=== PATIENT | female | born 1975 | race Caucasian/White ===

== ENCOUNTER → 2017-10-16 | Outpatient (CLI) | payer BC ==
[~2017-10-16] MED LIST: ESCI10 PO; LEVSOD50 PO; MOMENI; Mucinex600 MG PO; Naprosyn500 MG PO; Pseudoephedrine30 MG PO; Vibramycin100 MG PO
== END | disposition home or self-care (01) ==
LOC: LAB SHORT 13:48 → LAB 13:48
DX: N39.0 Urinary tract infection, site not specified (principal)
CPT/HCPCS: 87077; 87086; 87186

== ENCOUNTER → 2018-06-30 | Outpatient (CLI) | payer BC ==
[2018-06-30 16:28] LABS: Free Thyroxine 0.9 ng/dL (0.70-1.60)
[2018-06-30 16:30] LABS: Thyroid Stimulating Hormone 1.31 uIU/mL (0.360-4.800)
== END | disposition home or self-care (01) ==
LOC: LAB 15:53 → LAB SHORT 15:53
PROVIDERS: Hospitalist
DX: E03.9 Hypothyroidism, unspecified (principal)
CPT/HCPCS: 84439; 84443

== ENCOUNTER → 2019-07-20 | Outpatient (CLI) | payer BC ==
[2019-07-20 19:04] LABS: Free Thyroxine 0.85 ng/dL (0.70-1.60); Thyroid Stimulating Hormone 0.941 uIU/mL (0.360-4.800)
== END | disposition home or self-care (01) ==
LOC: LAB SHORT 16:30 → LAB 16:30
PROVIDERS: Hospitalist
DX: E03.9 Hypothyroidism, unspecified (principal)
CPT/HCPCS: 84439; 84443

== ENCOUNTER → 2021-05-08 | Outpatient (CLI) | payer BC ==
[2021-05-08 15:53] LABS: Free Thyroxine 0.83 ng/dL (0.70-1.60); Thyroid Stimulating Hormone 2.99 uIU/mL (0.360-4.800); Triiodothyronine, Free 1.94 pg/mL (2.18-3.98)
== END ==
LOC: LAB SHORT 13:24 → LAB 13:24
PROVIDERS: Hospitalist
DX: E03.9 Hypothyroidism, unspecified (principal)
CPT/HCPCS: 84439; 84443; 84481

== ENCOUNTER 2021-06-26 17:36 | Emergency (ER) | payer BC ==
[~2021-06-26] VITALS: Ht 152.4 cm; Wt 57.6 kg
[~2021-06-26 17:36] MED LIST changes: -AMPDEX10CR PO; -HYDR1TAB94 PO; -NITR100CA PO
[2021-06-26 18:17] LABS: Source, Urine Clean Catch
[2021-06-26 18:23] LABS: Bilirubin, Urine Neg (Neg); Blood, Urine 5+ (Neg); Glucose Qualitative, Urine Neg (Neg); Ketones, Urine Neg (Neg); Leukocyte Esterase, Urine 3+ (Neg); Nitrite, Urine Neg (Neg); Protein, Urine 3+ (Neg); Urobilinogen, Urine NORM (Normal); pH, Urine 6.5 (5.0-8.0)
[2021-06-26 18:38] LABS: Appearance, Urine Hazy (Clear); Color, Urine Pale Yellow (P-Yellow)
[2021-06-26 18:41] LABS: Bacteria Many /hpf; Red Blood Cells, Urine 50-100 /hpf (0-2); Squamous Epithelial Cells Rare /hpf (Few); White Blood Cells, Urine 50-100 /hpf (0-5)
[2021-06-26 18:58] LABS: BASOPHILS ABSOLUTE AUTO 0.03 K/mm3 (0.00-0.23); BASOPHILS PERCENT AUTO 0 % (0-2); EOSINOPHILS ABSOLUTE AUTO 0.08 K/mm3 (0.00-0.68); EOSINOPHILS PERCENT AUTO 1 % (0-6); Hematocrit 38.7 % (33.0-51.0); Hemoglobin 13.4 g/dL (11.5-16.0); IMMATURE GRAN ABSOLUTE AUTO 0.04 K/mm3 (0.00-0.10); IMMATURE GRAN PERCENT AUTO 0 % (0-1); LYMPHOCYTES ABSOLUTE AUTO 1.74 K/mm3 (0.84-5.20); LYMPHOCYTES PERCENT AUTO 12 % (21-46); MONOCYTES ABSOLUTE AUTO 0.81 K/mm3 (0.16-1.47); MONOCYTES PERCENT AUTO 6 % (4-13); Mean Corpuscular HGB 31.6 pg (26.0-34.0); Mean Corpuscular HGB Conc 34.6 g/dL (31.5-36.5); Mean Corpuscular Volume 91 fL (80-100); Mean Platelet Volume 9.9 fL (9.1-12.4); NEUTROPHILS ABSOLUTE AUTO 12.07 K/mm3 (1.96-9.15); NEUTROPHILS PERCENT AUTO 82 % (41-73); Platelet Count 271 K/mm3 (150-400); RDW Coefficient Variation 12.1 % (11.7-14.2); RDW Standard Deviation 40.3 fL (35.1-46.3); Red Blood Cell Count 4.24 M/mm3 (3.80-5.20); White Blood Cell Count 14.77 K/mm3 (4.00-11.30)
[2021-06-26 19:29] LABS: Alanine Aminotransfer (ALT/SGP 25 U/L (12-78); Albumin/Globulin Ratio 1.1 (0.8-1.8); Alk Phos 71 U/L (50-136); Anion Gap 4 mmol/L (6-16); Aspartate Aminotrans (AST/SGOT 31 U/L (12-37); Bilirubin, Total 0.3 mg/dL (0.1-1.0); Blood Urea Nitrogen 15 mg/dL (8-24); Bun/Creatinine Ratio 25.8 (12.0-20.0); CO2, Blood 31 mmol/L (21-32); Calcium, Blood 9.1 mg/dL (8.5-10.1); Chloride, Blood 103 mmol/L (98-108); Creatinine, Blood 0.58 mg/dL (0.40-1.00); Globulin, Blood 3.6 g/dL (2.2-4.0); Glomerular Filtration Rate >60 (60-); Glucose, Blood 149 mg/dL (70-99); Potassium, Blood 4.5 mmol/L (3.5-5.5); Sodium, Blood 138 mmol/L (136-145); Total Protein, Blood 7.6 g/dL (6.4-8.2)
[2021-06-26] MEDS ORDERED: AMPDEX10CR PO (22:16)
[2021-06-26] MEDS ORDERED: HYDR1TAB94 PO (23:29)
[2021-06-26] MEDS ORDERED: NITR100CA PO (23:29)
== END 2021-06-27 | disposition home or self-care (01) ==
LOC: ER 17:36
PROVIDERS: Physician Assistant
DX: N39.0 Urinary tract infection, site not specified (principal); N83.201 Unspecified ovarian cyst, right side; D25.9 Leiomyoma of uterus, unspecified; E03.9 Hypothyroidism, unspecified; Z88.0 Allergy status to penicillin; Z88.1 Allergy status to other antibiotic agents; Z79.899 Other long term (current) drug therapy
CPT/HCPCS: 36415; 76830; 76856; 80053; 81001; 81025; 85025; 87077; 87086; 87186; 96374; 99284-25; A9270; J0696

== ENCOUNTER → 2021-06-26 | Outpatient (CLI) | payer BC ==
[~2021-06-26] MED LIST changes: +AMPDEX10CR PO; +HYDR1TAB94 PO; +NITR100CA PO
== END ==
LOC: LAB SHORT 16:17
DX: R30.9 Painful micturition, unspecified (principal); R31.9 Hematuria, unspecified
CPT/HCPCS: 87077; 87086; 87186

== ENCOUNTER → 2022-06-20 | Outpatient (CLI) | payer OTHER, BC ==
[~2022-06-20] MED LIST changes: +AMPDEX10CR PO; +HYDR1TAB94 PO; +NITR100CA PO
[2022-06-20 15:56] LABS: Free Thyroxine 0.94 ng/dL (0.70-1.60); Thyroid Stimulating Hormone 1.22 uIU/mL (0.360-4.800); Triiodothyronine, Free 2.45 pg/mL (2.18-3.98)
== END | disposition home or self-care (01) ==
LOC: LAB SHORT 13:49
PROVIDERS: Hospitalist
DX: E03.9 Hypothyroidism, unspecified (principal)
CPT/HCPCS: 84439; 84443; 84481

== ENCOUNTER 2023-05-01 09:56 | Day surgery (SDC) | payer OTHER ==
[2023-05-01] VITALS (12 sets, daily range): BP systolic 106–128; BP diastolic 53–99
[~2023-05-01] VITALS: Ht 152.4 cm; Wt 69.9 kg
[2023-05-01] MEDS ORDERED: Lactated Ringer's 1,000 ML IV SCH ×2 (10:30→15:30)
[2023-05-01] MEDS ORDERED: CeFAZolin Sodium 2,000 MG in NS 50 ML IV SCH (10:30)
[2023-05-01] MEDS ORDERED: Vitamin B-12100 MCG PO (10:40)
[2023-05-01] MEDS ORDERED: Bupivacaine 0.5% HCl 5 MG/ML 30MLVIAL ONE ×2 (11:00→11:18)
[2023-05-01] MEDS ORDERED: propofoL 20 ML IV ONE (11:15)
[2023-05-01] MEDS ORDERED: Rocuronium Bromide 10 MG/ML 5ML Injection IV ONE ×2 (11:15→14:10)
[2023-05-01] MEDS ORDERED: FentaNYL Citrate 50 MCG/ML 5 ML Injection ONE (11:15)
--- NOTE | 2023-05-01 11:32 | NUR ---
PT IN SDS. Patient up to Ambulate independently. Gait steady. Surgical site prepped with 2% Chlorhexidine cloth wipe. History, Chart, Medications and Allergies reviewed before start of procedure. Lungs clear T/O to Auscultation. Patient confirms NPO status and agrees with scheduled surgery. Pre-Op teaching done. Pt verbalizes understanding. Patient reports completing Chlorhexadine shower X2 prior to admission to hospital.
[2023-05-01] MEDS ORDERED: Clindamycin 600mg in D5W 50 ML IV SCH ×2 (11:35→11:45)
[2023-05-01] MEDS ORDERED: Gentamicin Sulfate 100 MG in NS 100 ML IV SCH (11:39)
[2023-05-01] MEDS ORDERED: Dexamethasone Sod Phos 10 MG/ML 1ML VIAL ONE (11:51)
[2023-05-01] MEDS ORDERED: Sugammadex Sodium 200 MG/2ML SDV (100 MG/ML) ONE (14:04)
[2023-05-01] MEDS ORDERED: Ondansetron HCl 2 MG / ML 2ML Vial ONE (14:04)
[2023-05-01] MEDS ORDERED: HYDROmorphone HCl/Pf 1MG SYR ONE (14:55)
[2023-05-01] MEDS ORDERED: Simethicone 80 MG Chew PO PRN (15:25)
[2023-05-01] MEDS ORDERED: HYDROmorphone HCl/Pf 1MG SYR IV PRN (15:25)
[2023-05-01] MEDS ORDERED: Ibuprofen 400 MG Tab PO PRN (15:25)
[2023-05-01] MEDS ORDERED: FLU VACC QS2023-24(6MOS UP)/PF 60 MCG/0.5 ML SYRINGE IM SCH (15:25)
[2023-05-01] MEDS ORDERED: Ondansetron HCl 2 MG / ML 2ML Vial IV PRN (15:30)
[2023-05-01] MEDS ORDERED: OxyCODONE 5 mg/Acetamin 325 mg TABLET PO PRN (15:30)
[2023-05-01] MEDS ORDERED: Promethazine HCl 12.5 MG Supp PR PRN (15:30)
[2023-05-01] MEDS ORDERED: Promethazine HCl 25 MG Tab PO PRN (15:30)
[2023-05-01] MEDS ORDERED: Ondansetron 4 MG TAB PO PRN (15:30)
[2023-05-01] MEDS ORDERED: Naloxone HCl 0.4MG / ML 1ML Vial IV PRN (15:30)
[2023-05-01] MEDS ORDERED: NS 250 ML IV PRN (16:15)
--- NOTE | 2023-05-01 16:53 | NUR ---
PT ARRIVED TO THE ROOM FROM PACU AT 1530. PT AWAKE, ORIENTED BUT DROWSY. PT COMPLAINING OF BLADDER PAIN. BOWEN REMOVED AT 1545 FOR COMFORT. PT CONTINUED TO COMPLAIN OF BLADDER PAIN AFTER BOWEN REMOVAL, PT ATTEMPTED TO VOID AND WAS UNABLE. PT GIVEN PERCOCET FOR PAIN. GAS X GIVEN FOR IMPROVED COMFORT, PT REPORTED FEELING LIKE SHE NEEDED TO HAVE A BM. PT EDUCATED TO AVOID STRAINING WHEN GOING TO THE BATHROOM. PT EDUCATED TO USE CALL LIGHT. PT'S AT THE BEDSIDE FOR SUPPORT.
[2023-05-01] MEDS ORDERED: Ketorolac Tromethamine 30mg Vial IV SCH (18:00)
[2023-05-01] MEDS ORDERED: Clindamycin HCl 150 MG Cap PO SCH (18:00)
--- NOTE | 2023-05-01 19:33 | NUR ---
SHIFT SUMMARY PT IS POD#0 FROM [facility] WITH DR. GORDON. PAIN HAS BEEN DIFFICULT TO MANAGE. PT HAS REPORTED BLADDER DISCOMFORT SINCE ARRIVAL TO THE ROOM. BOWEN CATH WAS REMOVED TO IMPROVE COMFORT BUT PT CONTINUES TO REPORT BLADDER DISCOMFORT. PT HAS BEEN GIVEN TORADOL AND PERCOCET FOR PAIN. PYRIDIUM GIVEN FOR BLADDER DISCOMFORT. ICE PACK PROVIDED FOR EXTERNAL DISCOMFORT. PT IS A 1 PERSON ASSIST WITH GAIT BELT AND WALKER. PT IS TOLERATING SOME PO. CALL LIGHT WITHIN REACH, PT CALLS APPROPRIATELY. REPORT GIVEN TO NOC SUZETTE BROWER.
[2023-05-02 04:20] LABS: Hematocrit 31.7 % (33.0-51.0); Hemoglobin 10.7 g/dL (11.5-16.0); Mean Corpuscular HGB 30.8 pg (26.0-34.0); Mean Corpuscular HGB Conc 33.8 g/dL (31.5-36.5); Mean Corpuscular Volume 91 fL (80-100); Mean Platelet Volume 8.4 fL (9.1-12.4); Platelet Count 219 K/mm3 (150-400); RDW Coefficient Variation 11.7 % (11.7-14.2); Red Blood Cell Count 3.47 M/mm3 (3.80-5.20); White Blood Cell Count 12.54 K/mm3 (4.00-11.30)
[2023-05-02 04:23] VITALS: BP 107/75
[2023-05-02 05:50] LABS: BAND PERCENT MAN 1 % (0-8); BASOPHILS PERCENT MAN 0 % (0-2); EOSINOPHILS PERCENT MAN 0 % (0-6); LYMPHOCYTES PERCENT MAN 12 % (21-46); MONOCYTES PERCENT MAN 4 % (4-13); NEUTROPHILS ABSOLUTE MAN 10.53 K/mm3 (1.96-9.15); SEG NEUTROPHILS PERCENT MAN 83 % (41-73); TOTAL CELLS COUNTED 100
[2023-05-02] MEDS ORDERED: Levothyroxine Sodium 0.05 MG Tab PO SCH (06:00)
[2023-05-02 06:57] VITALS: BP 113/66
--- NOTE | 2023-05-02 07:41 | NUR ---
POD 1 S/P LAVH. PT VSS T/O NIGHT. INCISIONS CDI, ABD SOFT TO PALP, BINDER IN PLACE. BROOK PAD CHANGED X1 R/T LIGHT SPOTTING. PT REP LESS URINARY DISCOMFORT THIS AM. PAIN MGD W/2 PERCOCET AND SCHEDULED TORADOL W/REP RELIEF. PT BECKI REG PO, REP +FLATUS. PT AMB INDEP IN ROOM, BECKI WELL. PLAN TO DC HOME TODAY.
[2023-05-02] MEDS ORDERED: Cyanocobalamin 100 MCG Tab PO SCH (09:00)
[2023-05-02] MEDS ORDERED: IBUP800 PO (09:24)
[2023-05-02] MEDS ORDERED: Percocet 5-3251 EACH PO (09:24)
[2023-05-02] MEDS ORDERED: PROM25 PO (09:25)
[2023-05-02] MEDS ORDERED: SIME80CH PO (09:25)
== END 2023-05-02 10:47 | disposition home or self-care (01) ==
LOC: BC 09:56 → ORSCMMR 09:56 → BC 09:57 → ORSCMMR 11:30 → ORD 12:30 → SURS 13:37 → ORSCMMR 13:41 → SURS 15:11 → ORSCMMR 05-02 10:47
PROVIDERS: Obstetrics & Gynecology
PROC: 0UT7FZZ Resection of Bilateral Fallopian Tubes, Via Natural or Artificial Opening With Percutaneous Endoscopic Assistance (ICD-10-PCS; principal; 2023-05-01 12:30)
PROC: 0UT1FZZ Resection of Left Ovary, Via Natural or Artificial Opening With Percutaneous Endoscopic Assistance (ICD-10-PCS; principal; 2023-05-01 12:30)
PROC: 0UT9FZZ Resection of Uterus, Via Natural or Artificial Opening With Percutaneous Endoscopic Assistance (ICD-10-PCS; principal; 2023-05-01 12:30)
PROC: 0U5F4ZZ Destruction of Cul-de-sac, Percutaneous Endoscopic Approach (ICD-10-PCS; principal; 2023-05-01 12:30)
DX: N92.0 Excessive and frequent menstruation with regular cycle (principal); D25.9 Leiomyoma of uterus, unspecified; N85.2 Hypertrophy of uterus; N94.10 Unspecified dyspareunia; N94.6 Dysmenorrhea, unspecified; R10.2 Pelvic and perineal pain; N72 Inflammatory disease of cervix uteri; N83.8 Other noninflammatory disorders of ovary, fallopian tube and broad ligament; N85.A Isthmocele; E03.9 Hypothyroidism, unspecified; G10 Huntington's disease; F41.9 Anxiety disorder, unspecified; F32.A Depression, unspecified; Z79.899 Other long term (current) drug therapy
CPT/HCPCS: 36415; 85025; 86850; 86900; 86901; 88307; A9270; J1100; J1170; J1580; J1885; J2405; J2704; J3010; J7120